=== PATIENT | male | born 1985 | race Caucasian/White ===

== ENCOUNTER 2017-12-05 22:04 | Emergency (ER) | payer OTHER ==
--- NOTE | 2017-12-05 22:28 | EDM.PDOC ---
ED HPI GENERAL MEDICAL PROBLEM - General Chief Complaint: Laceration Stated Complaint: FISH HOOK Time Seen by Provider: 12/05/17 22:15 Source of Information: Reports: Patient History Limitations: Reports: No Limitations - History of Present Illness INITIAL COMMENTS - FREE TEXT/NARRATIVE: 32 yo male presents with a fish hook in his R ear. Tetanus is UTD. Here for removal. 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) (none) - Related Data Allergies Allergy/AdvReac Type Severity Reaction Status Date / Time No Known Allergies Allergy Verified 12/05/17 22:20 Home Meds: Home Meds NK [No Known Home Meds] 12/05/17 [History] ED ROS GENERAL - Review of Systems Review Of Systems: See Below Constitutional: Reports: No Symptoms HEENT: Reports: No Symptoms Musculoskeletal: Reports: No Symptoms Skin: Reports: Wound (puncture wound R ear from fish hook) Neurological: Reports: No Symptoms ED EXAM, SKIN/RASH Exam: See Below Exam Limited By: No Limitations General Appearance: Alert, WD/WN, No Apparent Distress Neurological: Alert, Oriented, CN II-XII Intact, Normal Cognition, No Motor/ Sensory Deficits Psychiatric: Normal Affect, Normal Mood Skin: Warm, Dry, Normal Color, No Rash, Other (single dusty of a treble hook imbedded and almost through and through in the R auricle. ) Location, Skin: Other (R ear) Characteristics: Other (puncture) ED SKIN PROCEDURES - Additional/Other Procedure(s) Other (Free Text) Procedure(s): dusty cut off the hook and the hook was then backed out. Wound cleaned per nursing. Dressing applied. Course - Vital Signs Last Recorded V/S: Last Vital Signs Temp 35.9 C 12/05/17 22:21 Pulse 95 12/05/17 22:21 Resp 18 12/05/17 22:21 BP 136/79 12/05/17 22:21 Pulse Ox 97 12/05/17 22:21 - Orders/Labs/Meds Orders: Active Orders 24 hr Category Date Time Status Lidocaine 1% [Xylocaine-MPF 1%] Med 12/05/17 22:22 Once 5 ml INJECT ONETIME ONE Departure - Departure Time of Disposition: 22:50 Disposition: Home, Self-Care 01 Condition: Good Clinical Impression: Fish hook injury of cheek Qualifiers: Encounter type: initial encounter Qualified Code(s): S09.93XA - Unspecified injury of face, initial encounter - Discharge Information Referrals: PCP,None [Primary Care Provider] - - My Orders Last 24 Hours: My Active Orders 12/05/17 22:22 Lidocaine 1% [Xylocaine-MPF 1%] 5 ml INJECT ONETIME ONE - Assessment/Plan Last 24 Hours: My Active Orders 12/05/17 22:22 Lidocaine 1% [Xylocaine-MPF 1%] 5 ml INJECT ONETIME ONE
[2017-12-05] MEDS ORDERED: Bacitracin Oint 1 GM U/D Packet TOP ONE (22:40)
== END 2017-12-05 22:55 | disposition home or self-care (01) ==
LOC: JP.ED 22:04
DX: S00.451A Superficial foreign body of right ear, initial encounter (principal); W45.8XXA Other foreign body or object entering through skin, initial encounter
CPT/HCPCS: 99283

== ENCOUNTER 2024-08-20 19:33 | Emergency (ER) | payer OTHER ==
[2024-08-20] MEDS: Albuterol/Ipratropium 3.0-0.5 MG/3 ML Neb Soln NEB ONE (20:10)
== END 2024-08-20 20:48 | disposition home or self-care (01) ==
LOC: JP.ED 19:33
DX: J20.9 Acute bronchitis, unspecified (principal); J68.3 Other acute and subacute respiratory conditions due to chemicals, gases, fumes and vapors; F17.210 Nicotine dependence, cigarettes, uncomplicated
CPT/HCPCS: 87428-QW; 94640; 99285; J7620